=== PATIENT | female | born 1965 | race Caucasian/White ===

== ENCOUNTER 2018-10-19 08:01 | Inpatient (IN) | payer OTHER ==
[2018-10-19] MEDS ORDERED: PIPERACILLIN-TAZOBACTAM 3.375 GM in SODIUM CHLORIDE 0.9% 100 ML IVPB STA (08:33)
--- NOTE | 2018-10-19 08:47 | ED ---
Lower Extremity Injury HPI <Nestor Louis - Last Filed: 10/19/18 10:26> - General Source: patient, RN notes reviewed Mode of arrival: EMS Limitations: no limitations <J Carlos Garcia - Last Filed: 10/19/18 10:45> - General Chief Complaint: Extremity Injury, Lower Stated Complaint: foot infection Time Seen by Provider: 10/19/18 08:04 - History of Present Illness Initial Comments: 53-year-old female presents emergency department via EMS for left foot infection. Patient states she stepped on a toothpick on [place] states that she did not go to the hospital until 2 days after and which they pulled out. Patient states that she was given an antibiotic though she never filled it because she states that she's never taken antibiotic for infection before that shows just feels it herself. She states that the pain has become so intense that she cannot tolerated. She states her foot is swollen, red. Patient reports no fevers or chills. She states she cannot tolerate walk on her left foot. Patient has no history diabetes. Patient states her tetanus is up-to- date. (J Carlos Garcia) - Related Data Previous Rx's Medication Instructions Recorded Temazepam [Restoril] 15 mg PO HS PRN #5 cap 01/04/15 Allergies Allergy/AdvReac Type Severity Reaction Status Date / Time No Known Allergies Allergy Verified 01/04/15 15:47 Review of Systems ROS Other: All systems not noted in ROS Statement are negative. <Nestor Louis - Last Filed: 10/19/18 10:26> ROS Other: All systems not noted in ROS Statement are negative. <J Carlos Garcia - Last Filed: 10/19/18 10:45> ROS Statement: Those systems with pertinent positive or pertinent negative responses have been documented in the HPI. Past Medical History Additional Past Medical History / Comment(s): hypoglycemia, back surgery History of Any Multi-Drug Resistant Organisms: None Reported Past Surgical History: Tonsillectomy Past Psychological History: Anxiety, Depression Smoking Status: Never smoker Past Alcohol Use History: None Reported Past Drug Use History: Marijuana <J Carlos Garcia - Last Filed: 10/19/18 10:45> General Exam General appearance: alert, in no apparent distress Head exam: Present: atraumatic, normocephalic, normal inspection Respiratory exam: Present: normal lung sounds bilaterally. Absent: respiratory distress, wheezes, rales, rhonchi, stridor Cardiovascular Exam: Present: regular rate, normal rhythm, normal heart sounds. Absent: systolic murmur, diastolic murmur, rubs, gallop, clicks Extremities exam: Present: other (Left foot there is a large area of swelling to the lateral portion by the fifth metatarsal, erythema, severe times with palpation, neurovascular intact) Skin exam: Present: warm, dry <J Carlos Garcia - Last Filed: 10/19/18 10:45> Course <Nestor Louis - Last Filed: 10/19/18 10:26> <J Carlos Garcia - Last Filed: 10/19/18 10:45> Vital Signs 10/19/18 08:06 Temperature 99.0 F Pulse Rate 69 Respiratory 18 Rate Blood Pressure 136/80 O2 Sat by Pulse 100 Oximetry - Reevaluation(s) Reevaluation #1: 10/19/18 10:26 Patient reexamined and reevaluated by myself, Dr. Louis. Patient resting comfortably in bed. Patient does have left foot with callus/ulcer formation. There is probable underlying abscess and swelling. There is cellulitis extending to the proximal foot. Patient updated on results and plan. Case discussed in detail with Dr. acevedo, covering for Dr. Gaines/Jin, who will admit. (Nestor Louis) Medical Decision Making - Lab Data Result diagrams: 10/19/18 09:25 10/19/18 09:25 <Nestor Louis - Last Filed: 10/19/18 10:26> - Lab Data Result diagrams: 10/19/18 09:25 10/19/18 09:25 <J Carlos Garcia - Last Filed: 10/19/18 10:45> - Lab Data Lab Results 10/19/18 10/19/18 10/19/18 Range/Units 09:25 09:25 09:25 WBC 13.6 H (3.8-10.6) k/uL RBC 3.70 L (3.80-5.40) m/uL Hgb 11.1 L (11.4-16.0) gm/dL Hct 34.5 (34.0-46.0) % MCV 93.3 (80.0-100.0) fL MCH 29.9 (25.0-35.0) pg MCHC 32.1 (31.0-37.0) g/dL RDW 13.0 (11.5-15.5) % Plt Count 248 (150-450) k/uL Neutrophils % 84 % Lymphocytes % 10 % Monocytes % 4 % Eosinophils % 0 % Basophils % 0 % Neutrophils # 11.3 H (1.3-7.7) k/uL Lymphocytes # 1.4 (1.0-4.8) k/uL Monocytes # 0.6 (0-1.0) k/uL Eosinophils # 0.1 (0-0.7) k/uL Basophils # 0.0 (0-0.2) k/uL PT 10.0 (9.0-12.0) sec INR 0.9 (<1.2) APTT 24.9 (22.0-30.0) sec Sodium 133 L (137-145) mmol/L Potassium 4.8 (3.5-5.1) mmol/L Chloride 100 (98-107) mmol/L Carbon Dioxide 26 (22-30) mmol/L Anion Gap 7 mmol/L BUN 3 L (7-17) mg/dL Creatinine 0.54 (0.52-1.04) mg/dL Est GFR (CKD-EPI)AfAm >90 (>60 ml/min/1.73 sqM) Est GFR (CKD-EPI)NonAf >90 (>60 ml/min/1.73 sqM) Glucose 82 (74-99) mg/dL Plasma Lactic Acid Simeon (0.7-2.0) mmol/L Calcium 8.8 (8.4-10.2) mg/dL Total Bilirubin 0.6 (0.2-1.3) mg/dL AST 18 (14-36) U/L ALT 22 (9-52) U/L Alkaline Phosphatase 72 (38-126) U/L C-Reactive Protein 23.7 H (<10.0) mg/L Total Protein 5.8 L (6.3-8.2) g/dL Albumin 3.5 (3.5-5.0) g/dL 10/19/18 Range/Units 09:25 WBC (3.8-10.6) k/uL RBC (3.80-5.40) m/uL Hgb (11.4-16.0) gm/dL Hct (34.0-46.0) % MCV (80.0-100.0) fL MCH (25.0-35.0) pg MCHC (31.0-37.0) g/dL RDW (11.5-15.5) % Plt Count (150-450) k/uL Neutrophils % % Lymphocytes % % Monocytes % % Eosinophils % % Basophils % % Neutrophils # (1.3-7.7) k/uL Lymphocytes # (1.0-4.8) k/uL Monocytes # (0-1.0) k/uL Eosinophils # (0-0.7) k/uL Basophils # (0-0.2) k/uL PT (9.0-12.0) sec INR (<1.2) APTT (22.0-30.0) sec Sodium (137-145) mmol/L Potassium (3.5-5.1) mmol/L Chloride (98-107) mmol/L Carbon Dioxide (22-30) mmol/L Anion Gap mmol/L BUN (7-17) mg/dL Creatinine (0.52-1.04) mg/dL Est GFR (CKD-EPI)AfAm (>60 ml/min/1.73 sqM) Est GFR (CKD-EPI)NonAf (>60 ml/min/1.73 sqM) Glucose (74-99) mg/dL Plasma Lactic Acid Simeon 0.7 (0.7-2.0) mmol/L Calcium (8.4-10.2) mg/dL Total Bilirubin (0.2-1.3) mg/dL AST (14-36) U/L ALT (9-52) U/L Alkaline Phosphatase (38-126) U/L C-Reactive Protein (<10.0) mg/L Total Protein (6.3-8.2) g/dL Albumin (3.5-5.0) g/dL Disposition <Nestor Louis - Last Filed: 10/19/18 10:26> <J Carlos Garcia - Last Filed: 10/19/18 10:45> Clinical Impression: Cellulitis of right foot, Foreign body in right foot with infection Disposition: ADMITTED IP TO THIS HOSP Condition: Fair Referrals: Nanette Dexter MD [Primary Care Provider] - 1-2 days
--- NOTE | 2018-10-19 09:31 | XR ---
EXAMINATION TYPE: XR foot complete LT , 3 VIEWS DATE OF EXAM ORDERED: 10/19/2018 HISTORY: Pain. COMPARISON: None. FINDINGS: There are mild degenerative changes in the left first MTP joint. No fracture, dislocation or other acute osseous lesion is seen. There is soft tissue swelling adjacent to the fifth metatarsal base. IMPRESSION: 1. NO ACUTE OSSEOUS LESION. 2. MILD DEGENERATIVE CHANGE, LEFT FIRST MTP JOINT. 3. SOFT TISSUE SWELLING ADJACENT TO THE BASAL FIFTH METATARSAL.
[2018-10-19 10:02] LABS: Basophils % (A) 0 %; Eosinophils # (A) 0.1 k/uL (0-0.7); Eosinophils % (A) 0 %; HCT 34.5 % (34.0-46.0); HGB 11.1 gm/dL (11.4-16.0); Lymphocytes # (A) 1.4 k/uL (1.0-4.8); Lymphocytes % (A) 10 %; MCH 29.9 pg (25.0-35.0); MCHC 32.1 g/dL (31.0-37.0); MCV 93.3 fL (80.0-100.0); Mean Platelet Volume 6.5; Monocytes # (A) 0.6 k/uL (0-1.0); Monocytes % (A) 4 %; Neutrophils # (A) 11.3 k/uL (1.3-7.7); Neutrophils % (A) 84 %; Platelet Count 248 k/uL (150-450); WBC 13.6 k/uL (3.8-10.6)
[2018-10-19 10:06] LABS: INR 0.9 (<1.2); Partial Thromboplastin Time 24.9 sec (22.0-30.0)
[2018-10-19 10:07] LABS: ALT 22 U/L (9-52); AST 18 U/L (14-36); Albumin 3.5 g/dL (3.5-5.0); Alkaline Phosphatase 72 U/L (38-126); Anion Gap 7 mmol/L; Blood Urea Nitrogen 3 mg/dL (7-17); C Reactive Protein 23.7 mg/L (<10.0); Calcium 8.8 mg/dL (8.4-10.2); Carbon Dioxide 26 mmol/L (22-30); Chloride 100 mmol/L (98-107); Glucose 82 mg/dL (74-99); Potassium 4.8 mmol/L (3.5-5.1); Sodium 133 mmol/L (137-145); Total Bilirubin 0.6 mg/dL (0.2-1.3); Total Protein 5.8 g/dL (6.3-8.2)
[2018-10-19] MEDS ORDERED: NALOXONE 0.4 MG/ML 1 ML VIAL IV PRN (10:46)
[2018-10-19] MEDS ORDERED: ONDANSETRON 4 MG/2 ML VIAL IVP PRN (10:46)
[2018-10-19] MEDS ORDERED: VANCOMYCIN IV PER PHARMACY 1 EACH MISC MISCELLANE PRN (10:46)
[2018-10-19] MEDS ORDERED: VANCOMYCIN 1,000 MG in SODIUM CHLORIDE 0.9% 250 ML IVPB STA (10:58)
[2018-10-19] MEDS: HYDROcodone/APAP 5-325MG 1 EACH TAB PO PRN ×2 (12:30→20:26)
[2018-10-19] MEDS ORDERED: MORPHINE SULFATE 4 MG/ML SYRINGE IVP STA (13:30)
[2018-10-19] MEDS ORDERED: ACETAMINOPHEN TAB 500 MG TAB PO PRN (16:05)
[2018-10-19] MEDS ORDERED: ALPRAZolam 0.25 MG TAB PO PRN (16:05)
[2018-10-19] MEDS: PIPERACILLIN-TAZOBACTAM 3.375 GM in SODIUM CHLORIDE 0.9% 100 ML IVPB SCH (17:24)
[2018-10-19] MEDS: HYDROmorphone 0.5 MG/0.5 ML SYRINGE IVP PRN ×2 (17:24→22:06)
--- NOTE | 2018-10-19 17:38 | HP ---
HISTORY AND PHYSICAL CHIEF COMPLAINT: Pain and swelling of the left foot. HISTORY OF PRESENT ILLNESS: This 53-year-old woman with a past medical history of hypoglycemia, chronic back pain and anxiety and depression being followed by Dr. Nanette Dexter in the outpatient setting had a toothpick injury on the left foot on . The patient tried to take the toothpick out, but subsequently patient had to go to a physician in [place] where the patient is staying with her mom, but apparently the physician will not take her insurance. The patient came to [facility]. Patient was given antibiotics. The patient did not take the antibiotics apparently and the pain and swelling increased and patient came to [facility] and admitted for further evaluation and treatment. There is no history of any fever or rigors. No history of headache, loss of consciousness, seizures. PAST MEDICAL HISTORY: History of hypoglycemia, history of back pain, anxiety, depression. MEDICATIONS: Medications prior to admission include: 1. Trazodone 100 mg q.h.s. 2. Omeprazole 20 mg p.o. daily. 3. Multivitamins one p.o. daily. 4. Motrin 600 mg p.o. t.i.d. 5. Neurontin 100 mg t.i.d. 6. Prozac 40 mg daily. ALLERGIES: None. FAMILY HISTORY: No history of heart disease or strokes. SOCIAL HISTORY: History of THC. No history of smoking or alcohol intake. The patient is an artist. REVIEW OF SYSTEMS: ENT: No diminished hearing or diminished vision. CARDIOVASCULAR SYSTEM: No angina. RESPIRATORY SYSTEM: No cough. GI: No nausea. : No dysuria. NERVOUS SYSTEM: No numbness or weakness. ALLERGY/IMMUNOLOGY: No history of asthma or hayfever. MUSCULOSKELETAL: As mentioned earlier. HEMATOLOGY/ONCOLOGY: No history of anemia. ENDOCRINE: No history of diabetes or hypothyroidism. CONSTITUTIONAL: As mentioned earlier. DERMATOLOGY: Negative. RHEUMATOLOGY: Negative. PSYCHIATRY: As mentioned earlier. PHYSICAL EXAMINATION: The patient is alert and oriented x3. Pulse is 51, blood pressure 106/68, respirations 16, temperature 98.3, pulse ox 99% on room air. HEENT: Conjunctivae normal. NECK: No jugular venous distention. CARDIOVASCULAR: S1, S2 muffled. RESPIRATORY: Breath sounds diminished at the bases. No rhonchi, no crackles. ABDOMEN: Soft, nontender. No mass palpable. LEGS: Left foot is tender, painful, significant swelling in the mid foot on the lateral part. Some fluctuation, erythema. Some black central area. NERVOUS SYSTEM: Higher functions as mentioned. Moves all 4 limbs. No focal motor deficits. LYMPHATICS: No lymphadenopathy of the neck, axillae or groin. SKIN: No ulcer, rash or bleeding. JOINTS: No active deforming arthropathy. LABS: WBC 13.6, hemoglobin 11.1. Sodium 133. ASSESSMENT: 1. Acute left foot abscess with cellulitis with status post toothpick injury. 2. Increased WBC. 3. Anemia. 4. Hyponatremia. 5. History of hypoglycemia. 6. Chronic back pain, degenerative joint disease. 7. Anxiety, depression. RECOMMENDATIONS AND DISCUSSION: This 53-year-old woman who presented with multiple complex medical issues, we will monitor the patient closely. Continue the current medications. Continue symptomatic treatment. Broad-spectrum IV antibiotics initiated. Recommend orthopedic evaluation and also possible surgery. Continue to monitor. DVT prophylaxis. Pain medications. See orders for details. Guarded prognosis. Further management to follow. A copy of dictation forwarded to Dr. Nanette Dexter who is the primary physician. Home medications will be continued. MMODL / IJN: [id number] /
[2018-10-19] MEDS ORDERED: VANCOMYCIN 1,000 MG in SODIUM CHLORIDE 0.9% 250 ML IVPB SCH (18:00)
[2018-10-19] MEDS: LIDOCAINE 4% CREAM 5 GM TUBE TOPICAL PRN (22:06)
[2018-10-19] MEDS: VANCOMYCIN 1,000 MG in SODIUM CHLORIDE 0.9% 250 ML IVPB SCH (22:06)
[2018-10-19] MEDS: IBUPROFEN 600 MG TAB PO SCH (22:07)
[2018-10-19] MEDS: traZODone HCL 100 MG TAB PO SCH (22:07)
[2018-10-19] MEDS: HEPARIN SODIUM,PORCINE 5,000 UNIT/ML 1 ML VIAL SQ SCH (22:07)
[2018-10-19] MEDS: GABAPENTIN 100 MG CAP PO SCH (22:07)
[2018-10-20] MEDS: HYDROcodone/APAP 5-325MG 1 EACH TAB PO PRN (00:37)
[2018-10-20] MEDS: FLUoxetine HCL 20 MG CAP PO SCH ×3 (00:37→21:05)
[2018-10-20] MEDS: PIPERACILLIN-TAZOBACTAM 3.375 GM in SODIUM CHLORIDE 0.9% 100 ML IVPB SCH ×3 (00:37→15:15)
[2018-10-20] MEDS: MULTIVITAMINS, THERA 1 EACH TAB PO SCH (07:57)
[2018-10-20] MEDS: VANCOMYCIN 1,000 MG in SODIUM CHLORIDE 0.9% 250 ML IVPB SCH ×2 (07:57→21:06)
[2018-10-20] MEDS: IBUPROFEN 600 MG TAB PO SCH ×3 (07:57→21:05)
[2018-10-20] MEDS: HEPARIN SODIUM,PORCINE 5,000 UNIT/ML 1 ML VIAL SQ SCH ×2 (07:57→21:06)
[2018-10-20] MEDS: PANTOPRAZOLE 40 MG TABLET PO SCH (07:58)
[2018-10-20] MEDS: GABAPENTIN 100 MG CAP PO SCH ×3 (07:58→21:05)
[2018-10-20] MEDS: HYDROmorphone 0.5 MG/0.5 ML SYRINGE IVP PRN ×2 (08:31→12:27)
[2018-10-20] MEDS: LIDOCAINE 4% CREAM 5 GM TUBE TOPICAL PRN ×2 (08:32→16:12)
[2018-10-20] MEDS ORDERED: NON-FORMULARY DRUG (Omeprazole [Omeprazole] 20 MG) PO SCH (09:00)
--- NOTE | 2018-10-20 12:47 | CT ---
EXAMINATION TYPE: CT foot LT wo con DATE OF EXAM: 10/20/2018 COMPARISON: Plain radiographs dated 10/19/2018. HISTORY: Left foot abscess, lateral CT DLP: 227.1 mGycm Automated exposure control for dose reduction was used. FINDINGS: There is inflammatory change and edema adjacent to the base of the fifth metatarsal. I moustapha ot exclude a small amount of fluid in this location measuring 9.9 x 22.5 mm. No osseous destruction i s seen. There are mild degenerative changes in the left first MCP joint. IMPRESSION: 1. NO ACUTE OSSEOUS LESION. 2. INFLAMMATORY CHANGE ADJACENT TO THE BASE OF THE FIFTH METATARSAL. I CANNOT EXCLUDE A SMALL AMOUNT OF ADJACENT FLUID. 3. MILD DEGENERATIVE CHANGES, LEFT FIRST MTP JOINT.
--- NOTE | 2018-10-20 12:50 | P.CNOR ---
History of Present Illness - [facility] Consult date: 10/20/18 Consult reason: other (left foot infection) History of present illness: The patient is a 53-year-old female who presented to the hospital yesterday with a worsening left foot wound. She states that she stepped on a toothpick on . The toothpick was removed and she was started on oral antibiotics , which she did not take. The wound and pain continued to worsen and she presented for further evaluation and care at the emergency department at [facility]. The patient was found to have a large wound on the plantar aspect of the foot and she was admitted for IV antibiotics and further recommendations by orthopedic surgery. She states that she is had difficulty walking due to the wound and the pain that she is experiencing. She denies drainage from the wound. The patient states that she did have a fever last night but denies previous fevers. She denies chills, rigors, shortness breath, chest pain, abdominal pain at this time. Review of Systems Constitutional: Reports fever, Denies chills, Denies fatigue Cardiovascular: Denies chest pain, Denies shortness of breath Respiratory: Denies cough Gastrointestinal: Denies diarrhea, Denies nausea, Denies vomiting Musculoskeletal: left: foot pain, foot swelling Past Medical History Additional Past Medical History / Comment(s): hypoglycemia, chronic back pain History of Any Multi-Drug Resistant Organisms: None Reported Past Surgical History: Tonsillectomy Past Psychological History: Anxiety, Depression Smoking Status: Never smoker Past Alcohol Use History: None Reported Past Drug Use History: Marijuana Medications and Allergies Home Medications Medication Instructions Recorded Confirmed Type FLUoxetine HCL [PROzac] 60 mg PO DAILY 10/19/18 10/19/18 History Ibuprofen [Motrin] 600 mg PO TID 10/19/18 10/19/18 History Multivitamins, Thera [Multivitamin 1 tab PO DAILY 10/19/18 10/19/18 History (formulary)] RX: Gabapentin [Neurontin] 100 mg PO TID 10/19/18 10/19/18 History RX: Omeprazole 20 mg PO DAILY 10/19/18 10/19/18 History RX: traZODone HCL [Desyrel] 100 mg PO HS 10/19/18 10/19/18 History Allergies Allergy/AdvReac Type Severity Reaction Status Date / Time No Known Allergies Allergy Verified 10/19/18 10:51 Physical Examination The patient is a 53-year-old female who is in no acute distress. She is alert and oriented 3. Exam of the left foot reveals a large wound to the lateral aspect of the plantar surface. There is a scab over the entrance wound from the toothpick. No drainage from the wound is present at this time. There appears to be a large fluid collection that is superficial. there is tenderness directly over the wound and surrounding skin. She is able to wiggle her toes without much difficulty. She has good foot and ankle motion. Neurological and circulatory status is intact. Results - Labs Labs: Microbiology - Last 24 Hours (Table) 10/19/18 09:25 Blood Culture - Preliminary Blood No Growth after 24 hours H & H 10/19/18 Range/Units 09:25 Hgb 11.1 L (11.4-16.0) gm/dL Hct 34.5 (34.0-46.0) % Coagulation 10/19/18 Range/Units 09:25 INR 0.9 (<1.2) Result Diagrams: 10/20/18 12:45 10/20/18 12:45 - Diagnostic results Ankle/Foot x-ray: image reviewed (x-rays of the left foot revealed no signs of osteomyelitis.) Assessment and Plan (1) Abscess of left foot Current Visit: Yes Status: Acute Code(s): L02.612 - CUTANEOUS ABSCESS OF LEFT FOOT SNOMED Code(s): 914372653 (2) Cellulitis of left foot Current Visit: Yes Status: Acute Code(s): L03.116 - CELLULITIS OF LEFT LOWER LIMB SNOMED Code(s): 960531076 (3) Fever Current Visit: Yes Status: Acute Code(s): R50.9 - FEVER, UNSPECIFIED SNOMED Code(s): 442665954 Plan: The clinical and x-ray findings were discussed with the patient. The case was discussed at length with Dr. Jorden Quispe. We are recommending a bedside incision and drainage of the wound today. The foot was prepped with alcohol and chlorhexidine, using an 11 blade a small incision was placed over the the wound. Immediate purulent drainage was expressed from the wound. The drainage had a strong odor. A culture was taken. The patient's foot was placed in basin with sterile water and soap to cleanse the wound. Nursing staff will dry the foot and place a dry dressing after the soak iscompleted. The foot should be soaked at least 2-3 times a day over the next 24 hours. The patient will be nothing by mouth at midnight tonight for possible further incision and drainage in the operating room tomorrow. Continue pain control. Continue IV antibiotics. Infectious disease has been consulted for further recommendations on antibiotics. We will continue to follow patient closely make further recommendations as needed.
[2018-10-20 13:17] LABS: Basophils % (A) 0 %; Eosinophils # (A) 0.1 k/uL (0-0.7); Eosinophils % (A) 0 %; HCT 34.5 % (34.0-46.0); HGB 11.1 gm/dL (11.4-16.0); Lymphocytes # (A) 1.4 k/uL (1.0-4.8); Lymphocytes % (A) 12 %; MCH 30.2 pg (25.0-35.0); MCHC 32.1 g/dL (31.0-37.0); MCV 94.1 fL (80.0-100.0); Mean Platelet Volume 6.6; Monocytes # (A) 0.6 k/uL (0-1.0); Monocytes % (A) 6 %; Neutrophils # (A) 9.3 k/uL (1.3-7.7); Neutrophils % (A) 80 %; Platelet Count 217 k/uL (150-450); RBC 3.67 m/uL (3.80-5.40); RDW 12.9 % (11.5-15.5); WBC 11.6 k/uL (3.8-10.6)
[2018-10-20 13:30] LABS: Anion Gap 10 mmol/L; Blood Urea Nitrogen 9 mg/dL (7-17); Calcium 8.7 mg/dL (8.4-10.2); Carbon Dioxide 25 mmol/L (22-30); Chloride 101 mmol/L (98-107); Glucose 66 mg/dL (74-99); Potassium 4.3 mmol/L (3.5-5.1); Sodium 136 mmol/L (137-145)
--- NOTE | 2018-10-20 17:22 | CONS ---
CONSULTATION DATE OF SERVICE: 10/20/2018 REASON FOR CONSULTATION: Left foot abscess and cellulitis. HISTORY OF PRESENT ILLNESS: The patient is a 53-year-old female who apparently stepped on a toothpick around [place]. The patient said the toothpick was removed and she apparently was seen in the outpatient setting and was started on oral antibiotic which the patient never took. Subsequently, the patient noticed to have the left foot lateral border becoming more painful, swollen and red. The pain described to be throbbing almost 10/10, and severe with associated swelling and redness. The patient denies high-grade fever, rigors or chills. With these symptoms, the patient was evaluated by the ER physician. On arrival to the ER, the patient was afebrile subsequently did spike a fever of 100.7 last night. The patient did have a elevated white count 13.6. The patient did have x-rays of the left foot completed which was negative for any acute osseous lesion. Mild degenerative changes. Soft tissue swelling adjacent to the base of the 5th metatars[address]. A CT of the foot was completed today which did shows no acute osseous lesion. Inflammatory changes just into the base of the 5th metatarsal head and a small amount of adjacent fluid. The patient was evaluated by the RN and did have bedside I and D with the plan for further debridement in the morning. Culture was obtained. The patient was started on vancomycin and Zosyn. Infectious Disease was consulted for further recommendation regarding antibiotic therapy. REVIEW OF SYSTEMS: CONSTITUTIONAL: Positive for weakness and fever. Eyes: No complaint. ENT: No complaint. Respiratory: No complaint. Cardiovascular: No complaint. Genitourinary: No complaint. Gastrointestinal: No complaint. Musculoskeletal as per HPI. Integumentary as per HPI. NEUROLOGICAL: No complaint. PAST MEDICAL HISTORY: Significant for chronic back pain, hypercalcemia and anxiety/depression. PAST SURGICAL HISTORY: Tonsillectomy. SOCIAL HISTORY: Denies smoking. No drinking. Admitted to marijuana use. FAMILY HISTORY: No pertinent findings noticed. ALLERGIES: No known drug allergies. MEDICATION: Include the patient is currently on vancomycin 1 g q.12h, she is on Desyrel, Restoril, Zosyn, Protonix, Zofran, Narcan, Theragran, lidocaine, Dilaudid, heparin, Neurontin, Prozac, Xanax and Tylenol. PHYSICAL EXAMINATION: Blood pressure is 130/63 with a pulse of 73, temperature 98.4. She is 98% on room air. General description is a middle-aged female lying in bed in no distress. No tachypnea or accessory muscles of respiration use. HEENT: Shows slight pallor. No scleral icterus. Oral mucosal membranes are dry. No pharyngeal erythema or thrush. Neck: Trachea central. No thyromegaly. Lungs unlabored breathing. Clear to auscultation anteriorly. No wheeze or crackles. Heart S1, S2. Regular rate and rhythm. ABDOMEN: Soft. No tenderness. No guarding. No rigidity. EXTREMITIES: No edema of the feet. Examination of the left foot lateral border did have a significant swelling and redness with a pustule formation which is very painful to touch, slightly warm. NEUROLOGIC: The patient is awake, alert, and oriented times three. Mood and affect normal. LABS: Hemoglobin is 11.1, white count 11.6. Admission white count was 13.6, BUN of 9, creatinine 0.59. CRP 23.7. CT and the x-ray report as mentioned above. DIAGNOSTIC IMPRESSION AND PLAN: Patient with acute left foot abscess and cellulitis started with injury from the toothpick, the likely organism to cover the gram-positive skin deena for a gram- negative infection less likely but not entirely excluded. PLAN: 1. Vancomycin 1 g q.12 watching the kidney function and Vanco trough closely. 2. Zosyn 3.375. 3. The patient should benefit from further debridement of this wound in the OR setting with deep culture. 4. We will follow up on clinical condition and culture to further adjust medication if needed. Thank you for this consultation. We will follow this patient along with you. MMODL / IJN: [id number] /
[2018-10-20] MEDS: traZODone HCL 100 MG TAB PO SCH (21:05)
[2018-10-20] MEDS: TEMAZEPAM 15 MG CAP PO PRN (21:12)
--- NOTE | 2018-10-20 23:58 | PN ---
PROGRESS NOTE DATE OF SERVICE: 10/20/2018 This 53-year-old woman who was admitted with acute left foot abscess is also being followed by Orthopedic Surgery and as well as Infectious Disease. Patient is on broad- spectrum IV antibiotics. Orthopedic surgery did bedside incision with foul odor discharge. Soaking has been done. No chest pain. No palpitations. No fever. Cultures are negative so far. EXAM: Alert and oriented times three. Pulse is 63, blood pressure 103/60, respiration 16, temperature 98.2, pulse ox 98% on room air. HEENT: Conjunctivae normal. NECK: No jugular venous distention. CARDIOVASCULAR: S1, S2. RESPIRATORY: Breath sounds diminished at the bases. No rhonchi. No crackles. ABDOMEN is soft, nontender. LEGS: The left foot significant infection abscess present. LABS: WBC 11.7, hemoglobin 11.1. ASSESSMENT: 1. Acute left foot abscess cellulitis status post toothpick injury. 2. Increased WBC. 3. Anemia. 4. Hyponatremia. 5. History of hypoglycemia. 6. Chronic back pain. 7. Degenerative joint disease. 8. Anxiety, depression. RECOMMENDATIONS AND DISCUSSION: Recommend to continue current medications, continue symptomatic treatment. I also recommended foot CT scan which showed inflammatory changes and no foreign body was noted. We will continue to monitor. Prognosis guarded. See orders for details. Infectious Disease has seen the patient. We will follow the cultures. Further recommendation to follow. MMODL / IJN: [id number] /
[2018-10-21] MEDS: PIPERACILLIN-TAZOBACTAM 3.375 GM in SODIUM CHLORIDE 0.9% 100 ML IVPB SCH ×4 (00:09→23:01)
[2018-10-21] MEDS ORDERED: SODIUM CHLORIDE 0.9% 500 ML 500 ML IV ONE (01:39)
[2018-10-21] MEDS ORDERED: VANCOMYCIN TROUGH DUE 1 EACH MISC MISCELLANE ONE (08:00)
[2018-10-21] MEDS: IBUPROFEN 600 MG TAB PO SCH ×3 (08:39→23:01)
[2018-10-21] MEDS: GABAPENTIN 100 MG CAP PO SCH ×3 (08:39→23:01)
[2018-10-21] MEDS: FLUoxetine HCL 20 MG CAP PO SCH ×2 (08:39→20:46)
[2018-10-21] MEDS: PANTOPRAZOLE 40 MG TABLET PO SCH (08:39)
[2018-10-21] MEDS: MULTIVITAMINS, THERA 1 EACH TAB PO SCH (08:39)
[2018-10-21] MEDS: HEPARIN SODIUM,PORCINE 5,000 UNIT/ML 1 ML VIAL SQ SCH ×2 (08:40→20:46)
[2018-10-21] MEDS: VANCOMYCIN 1,000 MG in SODIUM CHLORIDE 0.9% 250 ML IVPB SCH ×2 (09:51→20:43)
[2018-10-21] MEDS: HYDROmorphone 0.5 MG/0.5 ML SYRINGE IVP PRN (09:54)
[2018-10-21] MEDS: LIDOCAINE 4% CREAM 5 GM TUBE TOPICAL PRN ×2 (09:55→20:50)
[2018-10-21 10:35] LABS: HCT 31.9 % (34.0-46.0); HGB 10.5 gm/dL (11.4-16.0); MCH 30.8 pg (25.0-35.0); MCHC 32.9 g/dL (31.0-37.0); MCV 93.6 fL (80.0-100.0); Mean Platelet Volume 6.5; Platelet Count 233 k/uL (150-450); RDW 12.9 % (11.5-15.5); WBC 5.7 k/uL (3.8-10.6)
[2018-10-21 10:50] LABS: Eosinophils # (M) 0.11 k/uL (0-0.7); Lymphocytes # (M) 1.25 k/uL (1.0-4.8); Monocytes # (M) 0.57 k/uL (0-1.0); Neutrophils # (M) 3.76 k/uL (1.3-7.7); Neutrophils % (M) 66 %; Nucleated Red Blood Cells 0 /100 WBC (0-0); Total Cells Counted 100
--- NOTE | 2018-10-21 12:40 | P.PN ---
Subjective Progress Note Date: 10/21/18 Principal diagnosis: Left foot infection The patient is a 53-year-old female seen at bedside this afternoon. We are following her for left foot infection. Simple I and D was performed at bedside yesterday. She has been doing BID soaks along with IV antibiotics. She feels improved today. Denying fever, chills. numbness tingling or other. PHX: presented to the hospital yesterday with a worsening left foot wound. She states that she stepped on a toothpick on . The toothpick was removed and she was started on oral antibiotics, which she did not take. The wound and pain continued to worsen and she presented for further evaluation and care at the emergency department at [facility]. The patient was found to have a large wound on the plantar aspect of the foot and she was admitted for IV antibiotics and further recommendations by orthopedic surgery. She states that she is had difficulty walking due to the wound and the pain that she is experiencing. She denies drainage from the wound. The patient states that she did have a fever last night but denies previous fevers. She denies chills, rigors, shortness breath, chest pain, abdominal pain at this time Objective - Vital Signs Vital signs: Vital Signs Temp 97.3 F L 10/21/18 06:40 Pulse 53 L 10/21/18 06:40 Resp 16 10/21/18 06:40 BP 92/50 10/21/18 06:40 Pulse Ox 96 10/21/18 06:40 Intake & Output 10/20/18 10/21/18 10/21/18 18:59 06:59 18:59 Other: # Voids 3 1 - Exam Exam of the left foot reveals a large wound to the lateral aspect of the plantar surface. The wound is open and has mild draining as expected. No active bleeding. There is improved tenderness directly over the wound and surrounding skin. She is able to wiggle her toes without much difficulty. She has good foot and ankle motion. Neurological and circulatory status is intact. No signs of proximal streaking or progressing infection - Constitutional General appearance: Present: no acute distress - Labs CBC & Chem 7: 10/21/18 09:28 10/20/18 12:45 Labs: Abnormal Lab Results - Last 24 Hours (Table) 01/04/0210/20/18 10/21/18 Range/Units 12:45 12:45 09:28 WBC 11.6 H (3.8-10.6) k/uL RBC 3.67 L 3.40 L (3.80-5.40) m/uL Hgb 11.1 L 10.5 L (11.4-16.0) gm/dL Hct 31.9 L (34.0-46.0) % Neutrophils # 9.3 H (1.3-7.7) k/uL Sodium 136 L (137-145) mmol/L Glucose 66 L (74-99) mg/dL Microbiology - Last 24 Hours (Table) 10/19/18 09:25 Blood Culture - Preliminary Blood No Growth after 48 hours 10/20/18 11:00 Gram Stain - Preliminary Foot - Left Wound Culture - Preliminary 10/20/18 11:00 Anaerobic Culture - Preliminary Foot - Left Assessment and Plan (1) Abscess of left foot Narrative/Plan: She is showing signs of improvement. Will continue with BID soaks and IV antibiotics. We will continue to monitor closely and make further recommendations as appropriate. Current Visit: Yes Status: Acute Priority: Medium Code(s): L02.612 - CUTANEOUS ABSCESS OF LEFT FOOT SNOMED Code(s): 632809933 Time with Patient: Less than 30
[2018-10-21 14:47] LABS: Anion Gap 5 mmol/L; Blood Urea Nitrogen 4 mg/dL (7-17); Calcium 8.6 mg/dL (8.4-10.2); Carbon Dioxide 28 mmol/L (22-30); Chloride 104 mmol/L (98-107); Glucose 83 mg/dL (74-99); Sodium 137 mmol/L (137-145)
--- NOTE | 2018-10-21 18:10 | PN ---
PROGRESS NOTE DATE OF SERVICE: 10/21/2018 This 53-year-old woman who was admitted with left foot abscess, cellulitis, status post toothpick injury, is being closely monitored at this time. Orthopedics is following the patient closely. Cultures are pending at this time. Patient is on broad-spectrum IV antibiotics. Infectious Disease also saw the patient. CT scan of the foot was noted. Orthopedics recommended b.i.d. soak with IV antibiotics. No chest pain. No palpitations. No fever. On exam, alert and oriented x3. Pulse is 53, blood pressure 92/50, respirations 16, temperature 97.3, pulse ox 92% on room air. HEENT: Conjunctivae normal. NECK: No jugular venous distention. CARDIOVASCULAR SYSTEM: S1, S2 muffled. RESPIRATORY SYSTEM: Breath sounds diminished at the bases. No rhonchi. No crackles. ABDOMEN: Soft, non-tender. No mass palpable. LEGS: Left leg infection and abscess present. NERVOUS SYSTEM: No focal deficit. ASSESSMENT: 1. Acute left foot abscess with cellulitis, status post toothpick injury. 2. Increased white count. 3. Anemia. 4. Hyponatremia. 5. History of hypoglycemia. 6. Chronic back pain, degenerative joint disease. 7. Anxiety, depression. RECOMMENDATIONS AND DISCUSSION: At this time I recommend to continue current medication, continue with monitoring, symptomatic treatment. Otherwise at this time we will monitor the patient closely, closely follow with Infectious Disease and Orthopedic Surgery. Guarded prognosis. Further recommendations to follow. MMODL / IJN: [id number] /
[2018-10-21] MEDS: traZODone HCL 100 MG TAB PO SCH (20:45)
[2018-10-21] MEDS: TEMAZEPAM 15 MG CAP PO PRN (20:49)
--- NOTE | 2018-10-21 22:56 | PN ---
PROGRESS NOTE DATE OF SERVICE: 10/21/2018. REASON FOR FOLLOWUP: Left foot abscess and cellulitis. INTERVAL HISTORY: The patient is currently afebrile. She is breathing comfortably. Still having a pain to the left foot area, especially when she puts weight on it or if anything touches it. Still has some drainage from it. Denies having any chest pain or shortness of breath or cough. No abdominal pain, no diarrhea. PHYSICAL EXAMINATION: Blood pressure 108/58 with a pulse of 40, temperature 97.5. She is 92% on room air. GENERAL DESCRIPTION: A middle-aged female lying in bed in no distress. RESPIRATORY SYSTEM: Unlabored breathing. Clear to auscultation anteriorly. HEART: S1, S2. Regular rate and rhythm. ABDOMEN: Soft, no tenderness. Left foot still has pustular lesion with some drainage and some surrounding redness and tender to touch. LABS: Hemoglobin is 10.5, white count 5.7, BUN of 4, creatinine 0.61. Wound culture currently pending. DIAGNOSTIC IMPRESSION AND PLAN: Patient with left foot abscess and cellulitis status post bedside drainage. The patient will benefit from further debridement of the infected skin area to help in the healing process. Continue Zosyn and vanco while waiting for the culture to finalize. Continue supportive care. MMODL / IJN: [id number] /
[2018-10-22] MEDS: HYDROmorphone 0.5 MG/0.5 ML SYRINGE IVP PRN ×3 (00:15→21:18)
[2018-10-22] MEDS: HEPARIN SODIUM,PORCINE 5,000 UNIT/ML 1 ML VIAL SQ SCH ×2 (08:54→21:12)
[2018-10-22] MEDS: IBUPROFEN 600 MG TAB PO SCH ×3 (08:54→21:11)
[2018-10-22] MEDS: PIPERACILLIN-TAZOBACTAM 3.375 GM in SODIUM CHLORIDE 0.9% 100 ML IVPB SCH ×2 (08:55→15:55)
[2018-10-22] MEDS: MULTIVITAMINS, THERA 1 EACH TAB PO SCH (08:55)
[2018-10-22] MEDS: GABAPENTIN 100 MG CAP PO SCH ×3 (08:55→21:11)
[2018-10-22] MEDS: PANTOPRAZOLE 40 MG TABLET PO SCH (08:55)
[2018-10-22] MEDS: FLUoxetine HCL 20 MG CAP PO SCH ×2 (08:55→21:12)
[2018-10-22] MEDS: VANCOMYCIN 1,000 MG in SODIUM CHLORIDE 0.9% 250 ML IVPB SCH ×2 (09:00→21:12)
[2018-10-22 10:15] LABS: Basophils % (A) 0 %; Eosinophils # (A) 0.1 k/uL (0-0.7); Eosinophils % (A) 2 %; HCT 31.6 % (34.0-46.0); HGB 10.5 gm/dL (11.4-16.0); Lymphocytes % (A) 39 %; MCH 31.1 pg (25.0-35.0); MCHC 33.1 g/dL (31.0-37.0); MCV 93.7 fL (80.0-100.0); Mean Platelet Volume 6.8; Monocytes # (A) 0.4 k/uL (0-1.0); Monocytes % (A) 7 %; Neutrophils # (A) 2.4 k/uL (1.3-7.7); Neutrophils % (A) 48 %; Platelet Count 224 k/uL (150-450); RBC 3.38 m/uL (3.80-5.40); WBC 5.1 k/uL (3.8-10.6)
[2018-10-22 10:16] LABS: Anion Gap 4 mmol/L; Blood Urea Nitrogen 6 mg/dL (7-17); Calcium 8.6 mg/dL (8.4-10.2); Carbon Dioxide 28 mmol/L (22-30); Chloride 105 mmol/L (98-107); Glucose 79 mg/dL (74-99); Potassium 4.8 mmol/L (3.5-5.1); Sodium 137 mmol/L (137-145)
--- NOTE | 2018-10-22 10:51 | P.PN ---
Subjective Progress Note Date: 10/22/18 Principal diagnosis: Left foot infection The patient is a 53-year-old female seen at bedside this morning. We are following her for left foot infection. Simple I and D was performed at bedside, Sunday10/20/18. She has been doing BID soaks along with IV antibiotics. She continues to improve. Her pain is much improved. She is currently denying fever , chills. numbness tingling or other. PHX: She presented to the hospital yesterday with a worsening left foot wound. She states that she stepped on a toothpick on . The toothpick was removed and she was started on oral antibiotics, which she did not take. The wound and pain continued to worsen and she presented for further evaluation and care at the emergency department at [facility]. The patient was found to have a large wound on the plantar aspect of the foot and she was admitted for IV antibiotics and further recommendations by orthopedic surgery. She states that she is had difficulty walking due to the wound and the pain that she is experiencing. She denies drainage from the wound. The patient states that she did have a fever last night but denies previous fevers. She denies chills, rigors, shortness breath, chest pain, abdominal pain at this time Objective - Vital Signs Vital signs: Vital Signs Temp 96.7 F L 10/22/18 07:15 Pulse 45 L 10/22/18 07:15 Resp 16 10/22/18 07:15 BP 107/69 10/22/18 07:15 Pulse Ox 96 10/22/18 07:15 Intake & Output 10/21/18 10/22/18 10/22/18 18:59 06:59 18:59 Intake Total 0 Balance 0 Intake: Oral 0 Other: Voiding Method Toilet # Voids 3 1 # Bowel Movements 1 - Exam Exam of the left foot reveals an improving wound to the lateral aspect of the plantar surface. The wound is open and has mild draining as expected. Mild amount is expressed today. No thick randal purulence. No active bleeding. There is improved tenderness directly over the wound and surrounding skin. She is able to wiggle her toes without much difficulty. She has good foot and ankle motion. Neurological and circulatory status is intact. No signs of proximal streaking or progressing infection - Constitutional General appearance: Present: no acute distress - Labs CBC & Chem 7: 10/22/18 08:50 10/22/18 08:50 Labs: Abnormal Lab Results - Last 24 Hours (Table) 10/21/18 10/22/18 10/22/18 Range/Units 09:28 08:50 08:50 RBC 3.38 L (3.80-5.40) m/uL Hgb 10.5 L (11.4-16.0) gm/dL Hct 31.6 L (34.0-46.0) % BUN 4 L 6 L (7-17) mg/dL Microbiology - Last 24 Hours (Table) 10/19/18 09:25 Blood Culture - Preliminary Blood No Growth after 48 hours 10/20/18 11:00 Gram Stain - Preliminary Foot - Left Wound Culture - Preliminary Assessment and Plan (1) Abscess of left foot Narrative/Plan: She continues to show signs of improvement both clinically and symptomatically. Recommend continue with BID soaks and wound expression as advised to nurse. Continue IV antibiotics. We will continue to monitor closely and make further recommendations as appropriate. Current Visit: Yes Status: Acute Priority: Medium Code(s): L02.612 - CUTANEOUS ABSCESS OF LEFT FOOT SNOMED Code(s): 873928115 Time with Patient: Less than 30
[2018-10-22] MEDS: HYDROcodone/APAP 5-325MG 1 EACH TAB PO PRN (15:48)
--- NOTE | 2018-10-22 17:09 | PN ---
PROGRESS NOTE DATE OF SERVICE: 10/22/2018 REASON FOR FOLLOWUP: Left foot abscess and cellulitis. INTERVAL HISTORY: The patient is currently afebrile. She is breathing comfortably. Pain to the left foot area has decreased. It still has slight drainage. Denies having any chest pain, shortness of breath or cough. No abdominal pain or diarrhea. PHYSICAL EXAMINATION: Blood pressure 109/69 with a pulse of 50, temperature 97.7. She is 90% on room air. General description is a middle-aged female lying in bed in no distress. RESPIRATORY SYSTEM: Unlabored breathing. Clear to auscultation anteriorly. HEART: S1, S2. Regular rate and rhythm. ABDOMEN: Soft. No tenderness. LEFT FOOT: Swelling and redness slightly decreased. Not as tender as it was. LABS: Hemoglobin 10.5, white count 5.1, BUN of 6, creatinine 0.66. Wound cultures currently pending. DIAGNOSTIC IMPRESSION AND PLAN: Patient with left foot wound abscess and cellulitis, status post bedside drainage. Would benefit from further debridement and drainage in the OR. Local care with Aquacel Silver packing. Continue the vancomycin and Zosyn, adjusting antibiotic further on the basis of culture report. Continue supportive care. MMODL / IJN: [id number] /
[2018-10-22] MEDS: TEMAZEPAM 15 MG CAP PO PRN (21:11)
[2018-10-22] MEDS: traZODone HCL 100 MG TAB PO SCH (21:11)
[2018-10-23] MEDS: PIPERACILLIN-TAZOBACTAM 3.375 GM in SODIUM CHLORIDE 0.9% 100 ML IVPB SCH ×2 (05:41→08:10)
[2018-10-23] MEDS ORDERED: VANCOMYCIN TROUGH DUE 1 EACH MISC MISCELLANE ONE (08:00)
[2018-10-23] MEDS: HEPARIN SODIUM,PORCINE 5,000 UNIT/ML 1 ML VIAL SQ SCH ×2 (08:02→22:37)
[2018-10-23] MEDS: IBUPROFEN 600 MG TAB PO SCH ×3 (08:03→22:36)
[2018-10-23] MEDS: FLUoxetine HCL 20 MG CAP PO SCH ×2 (08:03→22:37)
[2018-10-23] MEDS: PANTOPRAZOLE 40 MG TABLET PO SCH (08:03)
[2018-10-23] MEDS: MULTIVITAMINS, THERA 1 EACH TAB PO SCH (08:04)
[2018-10-23] MEDS: GABAPENTIN 100 MG CAP PO SCH ×3 (08:05→22:37)
[2018-10-23] MEDS: HYDROcodone/APAP 5-325MG 1 EACH TAB PO PRN ×2 (08:09→15:26)
[2018-10-23 08:32] LABS: Basophils % (A) 0 %; Eosinophils # (A) 0.2 k/uL (0-0.7); Eosinophils % (A) 3 %; HCT 31.2 % (34.0-46.0); HGB 10.4 gm/dL (11.4-16.0); Lymphocytes # (A) 2.2 k/uL (1.0-4.8); Lymphocytes % (A) 41 %; MCHC 33.3 g/dL (31.0-37.0); MCV 93.2 fL (80.0-100.0); Mean Platelet Volume 6.4; Monocytes # (A) 0.4 k/uL (0-1.0); Monocytes % (A) 7 %; Neutrophils # (A) 2.4 k/uL (1.3-7.7); Neutrophils % (A) 45 %; Platelet Count 255 k/uL (150-450); RBC 3.35 m/uL (3.80-5.40); WBC 5.3 k/uL (3.8-10.6)
[2018-10-23 08:50] LABS: Anion Gap 6 mmol/L; Blood Urea Nitrogen 5 mg/dL (7-17); Calcium 8.8 mg/dL (8.4-10.2); Carbon Dioxide 29 mmol/L (22-30); Chloride 105 mmol/L (98-107); Glucose 79 mg/dL (74-99); Potassium 4.2 mmol/L (3.5-5.1); Sodium 140 mmol/L (137-145)
[2018-10-23] MEDS: VANCOMYCIN 1,000 MG in SODIUM CHLORIDE 0.9% 250 ML IVPB SCH (10:29)
--- NOTE | 2018-10-23 12:16 | P.PN ---
Subjective Progress Note Date: 10/23/18 Principal diagnosis: Left foot infection The patient is a 53-year-old female seen at bedside this morning. We are following her for left foot infection. Simple I and D was performed at bedside, Sunday10/20/18. She has been doing BID soaks along with IV antibiotics. She continues to improve daily. Her pain is improves daily. She is currently denying fever, chills. numbness tingling or other. PHX: She presented to the hospital yesterday with a worsening left foot wound. She states that she stepped on a toothpick on . The toothpick was removed and she was started on oral antibiotics, which she did not take. The wound and pain continued to worsen and she presented for further evaluation and care at the emergency department at [facility]. The patient was found to have a large wound on the plantar aspect of the foot and she was admitted for IV antibiotics and further recommendations by orthopedic surgery. She states that she is had difficulty walking due to the wound and the pain that she is experiencing. She denies drainage from the wound. The patient states that she did have a fever last night but denies previous fevers. She denies chills, rigors, shortness breath, chest pain, abdominal pain at this time Objective - Vital Signs Vital signs: Vital Signs Temp 98.5 F 10/23/18 06:50 Pulse 59 L 10/23/18 08:00 Resp 16 10/23/18 08:00 BP 116/71 10/23/18 06:50 Pulse Ox 94 L 10/23/18 06:50 Intake & Output 10/22/18 10/23/18 10/23/18 18:59 06:59 18:59 Other: Voiding Method Toilet # Voids 4 3 # Bowel Movements 0 - Exam Exam of the left foot reveals an improving wound to the lateral aspect of the plantar surface. The wound is open and has mild draining as expected. Mild amount is expressed again today. No thick randal purulence. No active bleeding. There is improved tenderness directly over the wound and surrounding skin. She is able to wiggle her toes without much difficulty. She has good foot and ankle motion. Neurological and circulatory status is intact. No signs of proximal streaking or progressing infection - Constitutional General appearance: Present: no acute distress - Labs CBC & Chem 7: 10/23/18 07:49 10/23/18 07:49 Labs: Abnormal Lab Results - Last 24 Hours (Table) 10/23/18 10/23/18 Range/Units 07:49 07:49 RBC 3.35 L (3.80-5.40) m/uL Hgb 10.4 L (11.4-16.0) gm/dL Hct 31.2 L (34.0-46.0) % BUN 5 L (7-17) mg/dL Microbiology - Last 24 Hours (Table) 10/20/18 11:00 Gram Stain - Preliminary Foot - Left Wound Culture - Preliminary Alpha Hemolytic Streptococcus Gram Neg Bacilli 10/19/18 09:25 Blood Culture - Preliminary Blood No Growth after 96 hours 10/20/18 11:00 Anaerobic Culture - Preliminary Foot - Left Assessment and Plan (1) Abscess of left foot Narrative/Plan: She continues to show signs of improvement both clinically and symptomatically daily. Recommend continue with BID soaks and wound expression as advised to nurse. Continue IV antibiotics. We will continue to monitor closely and make further recommendations as appropriate. Current Visit: Yes Status: Acute Priority: Medium Code(s): L02.612 - CUTANEOUS ABSCESS OF LEFT FOOT SNOMED Code(s): 179561924 Time with Patient: Less than 30
--- NOTE | 2018-10-23 14:49 | P.PN ---
Subjective Progress Note Date: 10/22/18 Progress note being dictated for Dr. Lopez. Interval history: This a 53-year-old female admitted with acute left foot abscess with cellulitis, status post toothpick injury and multiple other medical issues. Maintained on IV antibiotics of vancomycin and Zosyn as per infectious disease. Left Foot pain improving. Wound cultures pending. Being evaluated by orthopedics with potential further I&D. Denies chest pain, palpitations or increasing shortness of breath. Objective - Vital Signs Vital signs: Vital Signs Temp 96.7 F L 10/22/18 07:15 Pulse 45 L 10/22/18 07:15 Resp 16 10/22/18 07:15 BP 107/69 10/22/18 07:15 Pulse Ox 96 10/22/18 07:15 Intake & Output 10/21/18 10/22/18 10/22/18 18:59 06:59 18:59 Intake Total 0 Balance 0 Intake: Oral 0 Other: Voiding Method Toilet # Voids 3 1 # Bowel Movements 1 - Exam PHYSICAL EXAM: VITAL SIGNS: As above GENERAL: Lying in bed, no acute distress HEENT: Conjunctivae normal. eyes normal. Oral mucosa moist NECK: No JVD. No thyroid enlargement. No LNs CARDIOVASCULAR: S1, S2 muffled. No murmur RESPIRATION: Unlabored, Breath sounds diminished in the bases. No rhonchi or crackles. No bronchial breathing. ABDOMEN: Soft, nontender . No guarding. no masses palpable. Bowel sounds heard. LEGS: Improving Swelling ,redness, tenderness of left foot. PSYCHIATRY: Alert and oriented -3, mood and affect normal. NERVOUS SYSTEM: Cranial N 2-12 grossly normal. Moves all 4 limbs. Diffuse weakness No focal deficits. - Labs CBC & Chem 7: 10/23/18 07:49 10/23/18 07:49 Labs: Abnormal Lab Results - Last 24 Hours (Table) 10/21/18 10/22/18 10/22/18 Range/Units 09:28 08:50 08:50 RBC 3.38 L (3.80-5.40) m/uL Hgb 10.5 L (11.4-16.0) gm/dL Hct 31.6 L (34.0-46.0) % BUN 4 L 6 L (7-17) mg/dL Microbiology - Last 24 Hours (Table) 10/19/18 09:25 Blood Culture - Preliminary Blood No Growth after 72 hours 10/20/18 11:00 Gram Stain - Preliminary Foot - Left Wound Culture - Preliminary Assessment and Plan Assessment: -Acute left foot abscess with cellulitis, status post toothpick injury, status post I&D -Leukocytosis secondary to the above -Chronic back pain, degenerative joint -Anxiety, depression Plan: Continue current medication regime ,monitoring and symptomatic treatment. Maintain IV antibiotics as per infectious disease. Follow cultures closely. Potential I&D in the OR pending further evaluation by orthopedics. The impression and plan of care has been dictated as directed. : I performed a history and examination of this patient, discussed the same with the dictator. I agree with the dictator's note ,documented as a scribe. Any additional findings or plans will be noted.
[2018-10-23] MEDS: cefTRIAXone 2,000 MG in SODIUM CHLORIDE 0.9% 100 ML IVPB SCH (15:25)
[2018-10-23] MEDS: HYDROmorphone 0.5 MG/0.5 ML SYRINGE IVP PRN (20:47)
[2018-10-23] MEDS: traZODone HCL 100 MG TAB PO SCH (22:36)
--- NOTE | 2018-10-23 22:51 | PN ---
PROGRESS NOTE DATE OF SERVICE: 10/23/2018 REASON FOR FOLLOWUP: Left foot abscess, cellulitis. INTERVAL HISTORY: The patient is currently afebrile. She is breathing comfortably. She denies having any chest pain, shortness of breath or cough. No abdominal pain or any worsening pain to the left foot area. PHYSICAL EXAMINATION: Blood pressure 113/74 with a pulse of 58, temperature 97.9. She is 96% on room air. General description is a middle-aged female up in the bed in no distress. RESPIRATORY SYSTEM: Unlabored breathing. Clear to auscultation anteriorly. HEART: S1, S2. Regular rate and rhythm. ABDOMEN: Soft. No tenderness. LEFT FOOT: Currently minimal swelling and redness and minimal drainage. LABS: Hemoglobin 10.4, white count 5.3, BUN of 5, creatinine 0.80. DIAGNOSTIC IMPRESSION AND PLAN: Patient with left foot abscess. Culture with alpha hemolytic streptococcus with gram- negative bacilli. ID of the gram-negatives is pending. Antibiotic will be adjusted to Rocephin 2 grams daily. She will benefit from a midline and a short course of IV Rocephin in the outpatient setting. The gearcase assembler is working on it. Continue with supportive care. MMODL / IJN: [id number] /
[2018-10-23 23:14] VITALS: PULSE 89; RESP 16
--- NOTE | 2018-10-24 00:27 | P.PN ---
Subjective Progress Note Date: 10/23/18 Progress note being dictated for Dr. Lopez. Interval history: This a 53-year-old female admitted with acute left foot abscess with cellulitis, status post toothpick injury and multiple other medical issues. Maintained on IV antibiotics of vancomycin and Zosyn as per infectious disease. Left Foot pain improving. Wound cultures pending. Being evaluated by orthopedics with potential further I&D. Denies chest pain, palpitations or increasing shortness of breath. 10/23/2018 continues on IV antibiotics. Foot pain controlled, denies worsening .cultures reporting alphahemolytic streptococcus with gram-negative bacilli, ID pending. Afebrile. Objective - Vital Signs Vital signs: Vital Signs Temp 98.5 F 10/23/18 06:50 Pulse 59 L 10/23/18 08:00 Resp 16 10/23/18 08:00 BP 116/71 10/23/18 06:50 Pulse Ox 94 L 10/23/18 06:50 Intake & Output 10/22/18 10/23/18 10/23/18 18:59 06:59 18:59 Other: Voiding Method Toilet # Voids 4 3 # Bowel Movements 0 - Exam PHYSICAL EXAM: VITAL SIGNS: As above GENERAL: Lying in bed, no acute distress HEENT: Conjunctivae normal. eyes normal. Oral mucosa moist NECK: No JVD. No thyroid enlargement. No LNs CARDIOVASCULAR: S1, S2 muffled. No murmur RESPIRATION: Unlabored, Breath sounds diminished in the bases. No rhonchi or crackles. No bronchial breathing. ABDOMEN: Soft, nontender . No guarding. no masses palpable. Bowel sounds heard. LEGS: Improving Swelling ,redness, tenderness of left foot. Minimal drainage. PSYCHIATRY: Alert and oriented -3, mood and affect normal. NERVOUS SYSTEM: Cranial N 2-12 grossly normal. Moves all 4 limbs. Diffuse weakness No focal deficits. Microbiology 10/20/18 11:00 Foot - Left Gram Stain - Preliminary 10/20/18 11:00 Foot - Left Wound Culture - Preliminary Alpha Hemolytic Streptococcus Gram Neg Bacilli 10/19/18 09:25 Blood Blood Culture - Preliminary No Growth after 96 hours 10/20/18 11:00 Foot - Left Anaerobic Culture - Preliminary - Labs CBC & Chem 7: 10/23/18 07:49 10/23/18 07:49 Labs: Abnormal Lab Results - Last 24 Hours (Table) 10/23/18 10/23/18 Range/Units 07:49 07:49 RBC 3.35 L (3.80-5.40) m/uL Hgb 10.4 L (11.4-16.0) gm/dL Hct 31.2 L (34.0-46.0) % BUN 5 L (7-17) mg/dL Microbiology - Last 24 Hours (Table) 10/20/18 11:00 Gram Stain - Preliminary Foot - Left Wound Culture - Preliminary Alpha Hemolytic Streptococcus Gram Neg Bacilli 10/19/18 09:25 Blood Culture - Preliminary Blood No Growth after 96 hours 10/20/18 11:00 Anaerobic Culture - Preliminary Foot - Left Assessment and Plan Assessment: -Acute left foot abscess with cellulitis, status post toothpick injury, status post I&D, cultures growingAlpha Hemolytic Streptococcus,Gram Neg Bacilli -Leukocytosis secondary to the above -Chronic back pain, degenerative joint -Anxiety, depression Plan: Continue current medication regime ,monitoring and symptomatic treatment. Maintain IV antibiotics/Wound Care as per infectious disease. Follow cultures closely. ID discussing midline catheter with IV antibiotics at discharge. follow closely with orthopedics .discharge planning in progress for tomorrow. The impression and plan of care has been dictated as directed. : I performed a history and examination of this patient, discussed the same with the dictator. I agree with the dictator's note ,documented as a scribe. Any additional findings or plans will be noted.
[2018-10-24] MEDS: HYDROmorphone 0.5 MG/0.5 ML SYRINGE IVP PRN ×2 (00:51→05:42)
[2018-10-24] MEDS: MULTIVITAMINS, THERA 1 EACH TAB PO SCH (07:40)
[2018-10-24] MEDS: GABAPENTIN 100 MG CAP PO SCH (07:40)
[2018-10-24] MEDS: PANTOPRAZOLE 40 MG TABLET PO SCH (07:40)
[2018-10-24] MEDS: FLUoxetine HCL 20 MG CAP PO SCH (07:40)
[2018-10-24] MEDS: HEPARIN SODIUM,PORCINE 5,000 UNIT/ML 1 ML VIAL SQ SCH (07:40)
[2018-10-24] MEDS: IBUPROFEN 600 MG TAB PO SCH ×2 (07:40→16:16)
[2018-10-24 07:57] VITALS: BP 117/70; TEMP 98
[2018-10-24 09:22] LABS: Basophils % (A) 0 %; Eosinophils # (A) 0.1 k/uL (0-0.7); Eosinophils % (A) 2 %; HCT 35.6 % (34.0-46.0); HGB 11.6 gm/dL (11.4-16.0); Lymphocytes # (A) 2.6 k/uL (1.0-4.8); Lymphocytes % (A) 39 %; MCH 30.8 pg (25.0-35.0); MCHC 32.7 g/dL (31.0-37.0); MCV 94.2 fL (80.0-100.0); Mean Platelet Volume 6.6; Monocytes # (A) 0.5 k/uL (0-1.0); Monocytes % (A) 7 %; Neutrophils # (A) 3.3 k/uL (1.3-7.7); Neutrophils % (A) 49 %; Platelet Count 252 k/uL (150-450); RBC 3.78 m/uL (3.80-5.40); RDW 12.8 % (11.5-15.5); WBC 6.7 k/uL (3.8-10.6)
[2018-10-24 09:47] LABS: Anion Gap 7 mmol/L; Blood Urea Nitrogen 6 mg/dL (7-17); Calcium 9.6 mg/dL (8.4-10.2); Carbon Dioxide 29 mmol/L (22-30); Chloride 102 mmol/L (98-107); Glucose 69 mg/dL (74-99); Sodium 138 mmol/L (137-145)
[2018-10-24] MEDS: HYDROcodone/APAP 5-325MG 1 EACH TAB PO PRN (10:13)
[2018-10-24] MEDS: cefTRIAXone 2,000 MG in SODIUM CHLORIDE 0.9% 100 ML IVPB SCH (14:50)
--- NOTE | 2018-10-24 15:49 | PN ---
PROGRESS NOTE DATE OF SERVICE: 10/24/2018. REASON FOR FOLLOWUP: Left foot abscess and cellulitis. INTERVAL HISTORY: The patient is currently afebrile. She is breathing comfortably. The patient denies having any chest pain. No shortness of breath or cough. No abdominal pain or any worsening pain to the left foot area. PHYSICAL EXAMINATION: Blood pressure 117/70 with a pulse of 73, temperature 98. She is 96% on room air. General description is a middle-aged female lying in bed in no distress. RESPIRATORY SYSTEM: Unlabored breathing. Clear to auscultation anteriorly. HEART: S1, S2. Regular rate and rhythm. ABDOMEN: Soft. No tenderness. Left foot is currently dressed up. No obvious drainage on the dressing. LABS: Culture positive for alpha hemolytic streptococcus and Haemophilus parainfluenzae. White count 6.7. Blood culture negative. DIAGNOSTIC IMPRESSION AND PLAN: Patient with left foot abscess and cellulitis, status post bedside drainage. Plan at this time is Rocephin 2 grams daily through a midline for 10 days with close outpatient followup. Local wound care with Aquacel Silver dressing. Continue supportive care. MMODL / IJN: [id number] /
--- NOTE | 2018-10-24 21:37 | P.DS ---
Providers Date of admission: 10/19/18 10:26 Expected date of discharge: 10/24/18 Attending physician: MD Dr. Jessica Rich Consults: 10/19/18 16:01 Consult Physician Routine Consulting Provider: Jorden Quispe Consult Reason/Comments: left foot infection Do you want consulting provider notified?: Yes 10/20/18 11:31 Consult Physician Routine Consulting Provider: Javed Chung Consult Reason/Comments: left foot wound, antibiotic recommendations. Do you want consulting provider notified?: Yes Primary care physician: [facility] Course: Final Diagnoses: -Acute left foot abscess with cellulitis, status post toothpick injury, status post I&D, cultures growingAlpha Hemolytic Streptococcus, Haemophilus parainfluenza -Leukocytosis secondary to the above -Chronic back pain, degenerative joint -Anxiety, depression Hospital course:This is a 53-year-old female admitted with acute left foot abscess with cellulitis, status post toothpick injury and multiple other medical issues. Status post I&D by orthopedic surgery. Maintained on IV antibiotics of vancomycin and Zosyn and local wound care as per infectious disease. cultures growingAlpha Hemolytic Streptococcus, Haemophilus parainfluenza. Midline catheter placed. Significant clinical improvement. Patient is being discharged home in a stable condition with guarded prognosis. EXAM: GENERAL: Alert and oriented 3, no acute distress CARDIOVASCULAR: S1, S2 muffled. No murmur RESPIRATION: Unlabored, Breath sounds diminished in the bases. No rhonchi or crackles. ABDOMEN: Soft, nontender . No guarding. no masses palpable. Bowel sounds heard. EXTREMITY: Left foot dressing clean dry and intact PSYCHIATRY: Alert and oriented -3, mood and affect normal. NERVOUS SYSTEM: No focal deficits. Microbiology 10/20/18 11:00 Foot - Left Gram Stain - Final 10/20/18 11:00 Foot - Left Wound Culture - Final Alpha Hemolytic Streptococcus Haemophilus parainfluenzae 10/19/18 09:25 Blood Blood Culture - Preliminary No Growth after 120 hours 10/20/18 11:00 Foot - Left Anaerobic Culture - Final The impression and plan of care has been dictated as directed. : I performed a history and examination of this patient, discussed the same with the dictator. I agree with the dictator's note ,documented as a scribe. Any additional findings or plans will be noted. Time taken: 35 minutes Patient Condition at Discharge: Stable Plan - Discharge Summary Discharge Rx Participant: No New Discharge Prescriptions: New cefTRIAXone [Rocephin] 2,000 mg IM Q24HR #10 vial Acetaminophen Tab [Tylenol] 500 mg PO Q6HR PRN tab PRN Reason: Fever And/ Or Pain Continue Gabapentin [Neurontin] 100 mg PO TID FLUoxetine HCL [PROzac] 60 mg PO DAILY Omeprazole 20 mg PO DAILY Multivitamins, Thera [Multivitamin (formulary)] 1 tab PO DAILY Ibuprofen [Motrin] 600 mg PO TID traZODone HCL [Desyrel] 100 mg PO HS lamoTRIgine [LaMICtal] 100 mg PO DAILY Discharge Medication List FLUoxetine HCL [PROzac] 60 mg PO DAILY 10/19/18 [History] Gabapentin [Neurontin] 100 mg PO TID 10/19/18 [History] Ibuprofen [Motrin] 600 mg PO TID 10/19/18 [History] Multivitamins, Thera [Multivitamin (formulary)] 1 tab PO DAILY 10/19/18 [History ] Omeprazole 20 mg PO DAILY 10/19/18 [History] traZODone HCL [Desyrel] 100 mg PO HS 10/19/18 [History] lamoTRIgine [LaMICtal] 100 mg PO DAILY 10/22/18 [History] cefTRIAXone [Rocephin] 2,000 mg IM Q24HR #10 vial 10/23/18 [Rx] Acetaminophen Tab [Tylenol] 500 mg PO Q6HR PRN tab 10/24/18 [Rx] Follow up Appointment(s)/Referral(s): Paulette Perry [facility] [REFERRING] - 10/29/18 11:[address] [facility],Infusion [NON-STAFF] - [facility] [NON-STAFF] - ([facility] will call you to set up delivery ) Javed Chung MD [STAFF PHYSICIAN] - 10/25/18 11:00 am () Ambulatory/Diagnostic Orders: Complete Blood Count w/diff [LAB.AMB] Time Frame: 3 Days, Location: None Selected Patient Instructions/Handouts: Acute Wound Care (DC), How to Care for Your Midline Catheter (DC) Activity/Diet/Wound Care/Special Instructions: Midline cath in place and education provided. For IV antibiotic infusion please come to Dr. Chung's office starting tomorrow, 10/25/18 at 11:00AM. Regular diet as tolerated Activity as tolerated, toe touch to left foot. Discharge Disposition: HOME SELF-CARE
== END 2018-10-24 17:09 | disposition home or self-care (01) | DRG 603 ==
LOC: EC 08:01 → 3NMEDONC 10:26 → 4MS4W 13:03
PROVIDERS: ADMIT Internal Medicine; ATTEND Internal Medicine
PROC: 05HF33Z Insertion of Infusion Device into Left Cephalic Vein, Percutaneous Approach (ICD-10-PCS; principal; 2018-10-24 09:40)
DX: L02.612 Cutaneous abscess of left foot (principal); E87.1 Hypo-osmolality and hyponatremia; L03.116 Cellulitis of left lower limb; D64.9 Anemia, unspecified; F32.9 Major depressive disorder, single episode, unspecified; F41.9 Anxiety disorder, unspecified; G89.29 Other chronic pain; M19.90 Unspecified osteoarthritis, unspecified site; W45.8XXS Other foreign body or object entering through skin, sequela; W26.8XXS Contact with other sharp object(s), not elsewhere classified, sequela; Z79.899 Other long term (current) drug therapy; B95.4 Other streptococcus as the cause of diseases classified elsewhere; B96.3 Hemophilus influenzae [H. influenzae] as the cause of diseases classified elsewhere
CPT/HCPCS: 36410; 36415; 76937; 80048; 80053; 80202; 83605; 85025; 85610; 85730; 86140; 87040; 87070; 87075; 87205; 93005; 96365; 96366; 96375; 99284

== ENCOUNTER → 2024-05-15 | Outpatient (CLI) | payer OTHER ==
--- NOTE | 2024-05-15 18:06 | CA ---
Transthoracic Echo Report Name: Aliya Zaragoza Age: 59 Gender: F : 1965 Exam Date: 05/15/2024 13:51 Exam Location: [place] Echo Ht (in): 63 Wt (lb): 105 Ordering Physician: Srikanth Duffy MD ([email or web address]) Attending/Referring Phys: Josephine Miguel [facility] Reel Hooker Merline Torres RDCS Procedure CPT: Indications: R06.02 Shortness of breath; R42 DIZZINESS AND GIDD Cardiac Hx: Technical Quality: Good Contrast 1: Total Dose (mL): Contrast 2: Total Dose (mL): MEASUREMENTS (Male / Female) Normal Values 2D ECHO LV Diastolic Diameter PLAX 5.0 cm 4.2 - 5.9 / 3.9 - 5.3 cm LV Systolic Diameter PLAX 3.4 cm IVS Diastolic Thickness 0.9 cm 0.6 - 1.0 / 0.6 - 0.9 cm LVPW Diastolic Thickness 0.9 cm 0.6 - 1.0 / 0.6 - 0.9 cm LV Relative Wall Thickness 0.3 RV Internal Dim ED PLAX 2.5 cm LA Systolic Diameter LX 3.4 cm 3.0 - 4.0 / 2.7 - 3.8 cm LV Diastolic Volume MOD BP 80.1 cm??? 67 - 155 / 56 - 104 cm??? LV Systolic Volume MOD BP 25.6 cm??? 22 - 58 / 19 - 49 cm??? LV Ejection Fraction MOD BP 68.1 % >= 55 % LV Cardiac Index MOD BP 2032.8 cm???/min???m??? LV Diastolic Volume MOD 4C 68.0 cm??? LV Systolic Volume MOD 4C 22.3 cm??? LV Ejection Fraction MOD 4C 67.2 % LV Cardiac Index MOD 4C 1701.2 cm???/min???m??? LV Diastolic Length 4C 6.4 cm LV Systolic Length 4C 5.6 cm LV Diastolic Volume MOD 2C 91.8 cm??? LV Systolic Volume MOD 2C 28.3 cm??? LV Ejection Fraction MOD 2C 69.1 % LV Cardiac Index MOD 2C 2364.3 cm???/min???m??? LV Diastolic Length 2C 6.7 cm LV Systolic Length 2C 5.4 cm M-MODE Aortic Root Diameter MM 2.6 cm LA Systolic Diameter MM 3.8 cm LA Ao Ratio MM 1.4 AV Cusp Separation MM 1.7 cm DOPPLER AV Peak Velocity 158.9 cm/s AV Peak Gradient 10.1 mmHg LVOT Peak Velocity 111.0 cm/s LVOT Peak Gradient 4.9 mmHg LVOT Velocity Time Integral 22.9 cm Mitral E Point Velocity 55.4 cm/s Mitral A Point Velocity 24.3 cm/s Mitral E to A Ratio 2.3 MV Deceleration Time 335.8 ms MV E' Velocity 9.7 cm/s Mitral E to MV E' Ratio 5.7 TR Peak Velocity 200.9 cm/s TR Peak Gradient 16.2 mmHg Right Ventricular Systolic Press 21.2 mmHg FINDINGS Left Ventricle Left ventricular ejection fraction is estimated at 55-60 %. Normal left ventricular wall motion. No obvious regional wall motion abnormalities. Left ventricular cavity size normal. Right Ventricle Normal right ventricular size and function. Right ventricular systolic pressure within normal limits. Right Atrium Mild right atrial dilatation. Left Atrium Mild left atrial dilatation. Mitral Valve Structurally normal mitral valve. Mild mitral regurgitation. No mitral stenosis. Aortic Valve Trileaflet aortic valve. No aortic valve stenosis or regurgitation. Tricuspid Valve Structurally normal tricuspid valve. Mild tricuspid regurgitation. No tricuspid stenosis. Pulmonic Valve Structurally normal pulmonic valve. Trace pulmonic regurgitation. No pulmonic stenosis. Pericardium Minimal pericardial effusion (normal variant). Aorta Normal size aortic root and proximal ascending aorta. CONCLUSIONS Diagnosis Shortness of breath on exertion, presyncope Preserved LV send static function Normal RV size and function Mild biatrial enlargement Prominent posterior pericardial stripe Previewed by: Dr. Eduard Bhatt MD (Electronically Signed) Final Date: 15 May 2024 18:04
== END | disposition home or self-care (01) ==
LOC: RADECHMAIN 13:12
PROVIDERS: ATTEND Student in an Organized Health Care Education/Training Program
DX: R06.02 Shortness of breath (principal); R42 Dizziness and giddiness; R55 Syncope and collapse; I51.7 Cardiomegaly
CPT/HCPCS: 93306